=== PATIENT | male | born 1990 | race African-American/Black ===

== ENCOUNTER 2016-11-28 04:56 | Emergency (ER) | payer SELFPAY ==
[2016-11-28 05:03] VITALS: BP 133/73; BMI 23.7
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
[2016-11-28] MEDS ORDERED: BICILLIN L-A IM ONE ×2 (05:50→05:55)
[2016-11-28] MEDS ORDERED: TORADOL 60 MG VIAL ONE (06:00)
[2016-11-28] MEDS: TORADOL 60 MG VIAL IM ONE ×2 (06:01→06:04)
== END 2016-11-28 06:21 | disposition home or self-care (01) ==
LOC: ER 05:07
DX: J03.90 Acute tonsillitis, unspecified (principal); J02.0 Streptococcal pharyngitis
CPT/HCPCS: 87880; 96372; 99282; J0570; J1885

== ENCOUNTER 2016-12-26 00:01 | Emergency (ER) | payer SELFPAY ==
[2016-12-26 00:07] VITALS: BP 117/61; BMI 23.7
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
--- NOTE | 2016-12-26 01:39 | RAD ---
EXAM: Right knee x-ray INDICATION: Pain COMPARISION: No priors TECHNIQUE: AP, lateral, and oblique, three views FINDINGS: No acute fracture or dislocation. There is no evidence of an intraosseous lesion. The joint spaces a re preserved. No joint effusion is identified. The surrounding soft tissues appear unremarkable. The re is no evidence of a radiopaque foreign body. IMPRESSION: Normal right knee x-ray exam Reported By:
[2016-12-26] MEDS ORDERED: ULTRAM PO ONE (01:50)
[2016-12-26] MEDS ORDERED: ULTRAM ONE (01:55)
== END 2016-12-26 01:56 | disposition home or self-care (01) ==
LOC: ER 00:01
PROC: 2W3LX1Z Immobilization of Right Lower Extremity using Splint (ICD-10-PCS; principal; 2016-12-26)
DX: S80.01XA Contusion of right knee, initial encounter (principal); Y33.XXXA Other specified events, undetermined intent, initial encounter; Y92.89 Other specified places as the place of occurrence of the external cause
CPT/HCPCS: 29530; 73564; 80307; 99282; G0434